=== PATIENT | male | born 1945 | race Caucasian/White ===

== ENCOUNTER 2018-12-29 11:45 | Emergency (ER) | payer OTHER, MEDICARE ==
[~2018-12-29] VITALS: Ht 177.8 cm; Wt 58.1 kg
[~2018-12-29 11:45] MED LIST: AMOCLA875 PO; ASPI81EC PO; ATOR40TA PO; BISA10S PR; CLOP75 PO; CREON DR 24,001 EACH PO; DOXY100 PO; LISI5 PO; MESA250ER PO; METO25ER PO; MULVITMIND PO; NAPR500 PO; OXYC5 PO; Omeprazole20 M1 PO; SENN187 PO
== END 2018-12-29 13:49 | disposition home or self-care (01) ==
LOC: ER 11:45
DX: S80.261A Insect bite (nonvenomous), right knee, initial encounter (principal); W57.XXXA Bitten or stung by nonvenomous insect and other nonvenomous arthropods, initial encounter; Z79.899 Other long term (current) drug therapy; Z87.891 Personal history of nicotine dependence
CPT/HCPCS: 99283

== ENCOUNTER 2019-08-08 11:10 | Emergency (ER) | payer OTHER ==
[~2019-08-08] VITALS: Ht 177.8 cm; Wt 59.0 kg
[2019-08-08 11:45] LABS: Source, Urine Clean Catch
[2019-08-08 11:57] LABS: BASOPHILS ABSOLUTE AUTO 0.01 K/mm3 (0.00-0.23); BASOPHILS PERCENT AUTO 0 % (0-2); EOSINOPHILS ABSOLUTE AUTO 0.04 K/mm3 (0.00-0.68); EOSINOPHILS PERCENT AUTO 1 % (0-6); Hematocrit 38.9 % (37.0-53.0); Hemoglobin 13.2 g/dL (13.5-17.5); IMMATURE GRAN ABSOLUTE AUTO 0.01 K/mm3 (0.00-0.10); IMMATURE GRAN PERCENT AUTO 0 % (0-1); LYMPHOCYTES PERCENT AUTO 16 % (21-46); MONOCYTES ABSOLUTE AUTO 0.36 K/mm3 (0.16-1.47); MONOCYTES PERCENT AUTO 7 % (4-13); Mean Corpuscular HGB 31.1 pg (26.0-34.0); Mean Corpuscular HGB Conc 33.9 g/dL (31.5-36.5); Mean Corpuscular Volume 92 fL (80-100); Mean Platelet Volume 10.6 fL (9.1-12.4); NEUTROPHILS ABSOLUTE AUTO 3.67 K/mm3 (1.96-9.15); NEUTROPHILS PERCENT AUTO 75 % (41-73); Platelet Count 126 K/mm3 (150-400); RDW Coefficient Variation 14.8 % (11.7-14.2); RDW Standard Deviation 49.6 fL (35.1-46.3); Red Blood Cell Count 4.24 M/mm3 (4.30-5.90); White Blood Cell Count 4.89 K/mm3 (4.00-11.30)
[2019-08-08 11:57] LABS: Bilirubin, Urine Neg (Neg); Blood, Urine 5+ (Neg); Color, Urine Yellow (P-Yellow); Glucose Qualitative, Urine 4+ (Neg); Ketones, Urine Neg (Neg); Leukocyte Esterase, Urine Neg (Neg); Nitrite, Urine Neg (Neg); Protein, Urine 2+ (Neg); Specific Gravity, Urine 1.015 (1.003-1.022); Urobilinogen, Urine NORM (Normal)
[2019-08-08 12:09] LABS: Alanine Aminotransfer (ALT/SGP 35 U/L (12-78); Albumin, Blood 3.7 g/dL (3.4-5.0); Albumin/Globulin Ratio 1.1 (0.8-1.8); Alk Phos 74 U/L (50-136); Anion Gap 6 mmol/L (6-16); Aspartate Aminotrans (AST/SGOT 20 U/L (12-37); Bilirubin, Total 0.9 mg/dL (0.1-1.0); Blood Urea Nitrogen 13 mg/dL (8-24); Bun/Creatinine Ratio 19.5 (12.0-20.0); CO2, Blood 25 mmol/L (21-32); Calcium, Blood 8.8 mg/dL (8.5-10.1); Chloride, Blood 104 mmol/L (98-108); Creatinine, Blood 0.67 mg/dL (0.60-1.20); Globulin, Blood 3.3 g/dL (2.2-4.0); Glomerular Filtration Rate >60 (60-); Glucose, Blood 309 mg/dL (70-99); Potassium, Blood 3.8 mmol/L (3.5-5.5); Sodium, Blood 135 mmol/L (136-145)
[2019-08-08 12:43] LABS: Appearance, Urine Hazy (Clear)
[2019-08-08 12:44] LABS: Bacteria Rare /hpf; Calcium Oxalate Crystals Many /hpf; Red Blood Cells, Urine TNTC /hpf (0-2); Squamous Epithelial Cells Rare /hpf (Few)
[2019-08-08] MEDS ORDERED: Flomax0.4 MG PO (13:10)
[2019-08-08] MEDS ORDERED: HYDR1TAB94 PO (13:10)
== END 2019-08-08 13:31 | disposition home or self-care (01) ==
LOC: ER 11:10
PROVIDERS: Emergency Medicine
DX: N13.2 Hydronephrosis with renal and ureteral calculous obstruction (principal); K57.30 Diverticulosis of large intestine without perforation or abscess without bleeding; I25.10 Atherosclerotic heart disease of native coronary artery without angina pectoris; I25.2 Old myocardial infarction; Z79.899 Other long term (current) drug therapy; Z87.891 Personal history of nicotine dependence
CPT/HCPCS: 74176; 80053; 81001; 85025; 99284-25

== ENCOUNTER 2020-04-22 22:42 | Inpatient (IN) | payer OTHER ==
[~2020-04-22] VITALS: Ht 177.8 cm; Wt 57.8 kg
[~2020-04-22 22:42] MED LIST changes: +Flomax0.4 MG PO; +HYDR1TAB94 PO
[2020-04-22 23:33] LABS: BASOPHILS ABSOLUTE AUTO 0.02 K/mm3 (0.00-0.23); BASOPHILS PERCENT AUTO 0 % (0-2); EOSINOPHILS ABSOLUTE AUTO 0.08 K/mm3 (0.00-0.68); EOSINOPHILS PERCENT AUTO 2 % (0-6); Hematocrit 34.4 % (37.0-53.0); Hemoglobin 11.7 g/dL (13.5-17.5); IMMATURE GRAN ABSOLUTE AUTO 0.02 K/mm3 (0.00-0.10); IMMATURE GRAN PERCENT AUTO 0 % (0-1); LYMPHOCYTES PERCENT AUTO 23 % (21-46); MONOCYTES ABSOLUTE AUTO 0.45 K/mm3 (0.16-1.47); MONOCYTES PERCENT AUTO 9 % (4-13); Mean Corpuscular HGB 30.8 pg (26.0-34.0); Mean Corpuscular Volume 91 fL (80-100); Mean Platelet Volume 9.8 fL (9.1-12.4); NEUTROPHILS ABSOLUTE AUTO 3.45 K/mm3 (1.96-9.15); NEUTROPHILS PERCENT AUTO 66 % (41-73); Platelet Count 147 K/mm3 (150-400); RDW Coefficient Variation 14.1 % (11.7-14.2); RDW Standard Deviation 46.6 fL (35.1-46.3); White Blood Cell Count 5.22 K/mm3 (4.00-11.30)
[2020-04-22 23:53] LABS: Anion Gap 5 mmol/L (6-16); Blood Urea Nitrogen 16 mg/dL (8-24); Bun/Creatinine Ratio 20.8 (12.0-20.0); CO2, Blood 27 mmol/L (21-32); Calcium, Blood 9.1 mg/dL (8.5-10.1); Chloride, Blood 108 mmol/L (98-108); Creatinine, Blood 0.77 mg/dL (0.60-1.20); Glomerular Filtration Rate >60 (60-); Glucose, Blood 200 mg/dL (70-99); Potassium, Blood 3.8 mmol/L (3.5-5.5); Sodium, Blood 140 mmol/L (136-145); Troponin I <0.015 ng/mL (0.000-0.040)
[2020-04-23] MEDS ORDERED: ATOR40TA PO (01:27)
[2020-04-23] MEDS ORDERED: THERA-D2000 UNIT PO (01:30)
[2020-04-23] MEDS ORDERED: METF500 PO ×3 (01:31→07:14)
[2020-04-23 02:59] LABS: Troponin I 0.027 ng/mL (0.000-0.040)
[2020-04-23] MEDS ORDERED: PANCREAZE DR 11 EAC3 PO (03:58)
[2020-04-23] MEDS ORDERED: ZENPEP DR 10,01 EACH PO (07:35)
--- NOTE | 2020-04-23 09:28 | NUR ---
Pt called to report chest heaviness, like a weight over the center of his chest. NO diaphoresis, no dyspnea, no nausea. Vital signs stable. quality assurance monitor final tech reports no EKG changes at this time. Given 1 ntg tab under his tongue.
--- NOTE | 2020-04-23 09:29 | NUR ---
pt reports that the ntg tab has helped. spo2 100% on room air. Blood pressure retaken. Pt states that the pressure in his chest is going away a little bit.
--- NOTE | 2020-04-23 09:59 | NUR ---
MORNING UPDATE, ASSUMED CARE FROM NOC RN PT HAD JUST ARRIVED TO PCU AT SHIFT REPORT FROM THE ER. PT CAME TO THE HOSPITAL FOR CHEST PAIN, PT HAD AN RI APPROXIMATELY 1 YEAR AGO AND HAS BEEN PLACED ON OBSERVATION DUE TO THE CHEST PAIN. PT HAD NO CHEST PAIN OR SOB UPON ARRIVING TO THE UNIT. PT DID HAVE A BOUT OF CHEST PAIN THIS MORNING AT APPROXIMATELY 0930 BUT IT WAS RELIEVED WITH ONE SL NITRO TAB. NO EKG CHANGES WERE REPORTED PER PCU TURBINE ROOM ATTENDANTKim COOPER. VS STABLE, PT ON RA. SOME SLIGHT REDNESS ON THE SPINE, IT IS A VERY PROMINENT KYLE AREA FOR THIS PT. PT ALSO HAS A BANDAID ON THE BRIDGE OF HIS NOSE WHERE A CYST WAS REMOVED THIS PAST SATURDAY AN OUTPATIENT, STICHES ARE IN PLACE VERY SCANT AMOUNT OF SERISANGUIANOUS DRAINAGE. PT IS RESTING AT THIS TIME.
[2020-04-23 10:04] LABS: BASOPHILS ABSOLUTE AUTO 0.02 K/mm3 (0.00-0.23); BASOPHILS PERCENT AUTO 0 % (0-2); EOSINOPHILS ABSOLUTE AUTO 0.04 K/mm3 (0.00-0.68); EOSINOPHILS PERCENT AUTO 1 % (0-6); Hematocrit 35.4 % (37.0-53.0); Hemoglobin 12.3 g/dL (13.5-17.5); IMMATURE GRAN ABSOLUTE AUTO 0.01 K/mm3 (0.00-0.10); IMMATURE GRAN PERCENT AUTO 0 % (0-1); LYMPHOCYTES ABSOLUTE AUTO 1.15 K/mm3 (0.84-5.20); LYMPHOCYTES PERCENT AUTO 21 % (21-46); MONOCYTES ABSOLUTE AUTO 0.36 K/mm3 (0.16-1.47); MONOCYTES PERCENT AUTO 7 % (4-13); Mean Corpuscular HGB 30.8 pg (26.0-34.0); Mean Corpuscular HGB Conc 34.7 g/dL (31.5-36.5); Mean Corpuscular Volume 89 fL (80-100); Mean Platelet Volume 10.3 fL (9.1-12.4); NEUTROPHILS PERCENT AUTO 72 % (41-73); Platelet Count 153 K/mm3 (150-400); RDW Coefficient Variation 13.9 % (11.7-14.2); RDW Standard Deviation 45.7 fL (35.1-46.3); Red Blood Cell Count 3.99 M/mm3 (4.30-5.90); White Blood Cell Count 5.58 K/mm3 (4.00-11.30)
[2020-04-23 10:18] LABS: Alanine Aminotransfer (ALT/SGP 60 U/L (12-78); Albumin, Blood 3.2 g/dL (3.4-5.0); Alk Phos 69 U/L (50-136); Anion Gap 7 mmol/L (6-16); Aspartate Aminotrans (AST/SGOT 44 U/L (12-37); Bilirubin, Total 0.7 mg/dL (0.1-1.0); Blood Urea Nitrogen 14 mg/dL (8-24); Bun/Creatinine Ratio 23.3 (12.0-20.0); CO2, Blood 24 mmol/L (21-32); Calcium, Blood 8.9 mg/dL (8.5-10.1); Chloride, Blood 106 mmol/L (98-108); Globulin, Blood 3.2 g/dL (2.2-4.0); Glomerular Filtration Rate >60 (60-); Glucose, Blood 275 mg/dL (70-99); Potassium, Blood 3.8 mmol/L (3.5-5.5); Sodium, Blood 137 mmol/L (136-145); Total Protein, Blood 6.4 g/dL (6.4-8.2)
[2020-04-23 10:31] LABS: Troponin I 0.538 ng/mL (0.000-0.040)
[2020-04-23 12:15] LABS: International Normalized Ratio 1.21; Prothrombin Time Results 12.8 Sec (9.7-11.5)
[2020-04-23 13:37] LABS: Influenza A, PCR NEGATIVE (NEGATIVE); Influenza B, PCR NEGATIVE (NEGATIVE); Resp Syncytial Virus, PCR NEGATIVE (NEGATIVE); SARS-Cov-2 (COVID-19) PCR, MMC NEGATIVE (NEGATIVE)
--- NOTE | 2020-04-23 15:39 | NUR ---
Echocardiogram complete.
[2020-04-23 18:25] LABS: Troponin I 2.18 ng/mL (0.000-0.040)
--- NOTE | 2020-04-23 18:45 | NUR ---
SHIFT SUMMARY PT HAS BEEN ALERT AND ORIENTED TODAY, PT HAS BEEN ABLE TO USE THE URINAL INDEPENDENTLY TODAY. PT HAD A CARDIOLOGY CONSULT AND WILL BE GIVEN AN ANGIOGRAM TOMORROW. ECHO WAS COMPLETED TODAY AND PT HAS BEEN PLACED ON A HEPARIN GTT. PT IS RESTING IN BED AT THIS TIME
[2020-04-24 04:15] LABS: Hemoglobin 12.2 g/dL (13.5-17.5); Mean Corpuscular HGB 30.8 pg (26.0-34.0); Mean Corpuscular HGB Conc 34.9 g/dL (31.5-36.5); Mean Corpuscular Volume 88 fL (80-100); Mean Platelet Volume 9.9 fL (9.1-12.4); Platelet Count 118 K/mm3 (150-400); RDW Standard Deviation 45.1 fL (35.1-46.3); Red Blood Cell Count 3.96 M/mm3 (4.30-5.90); White Blood Cell Count 3.75 K/mm3 (4.00-11.30)
[2020-04-24 04:34] LABS: Alanine Aminotransfer (ALT/SGP 55 U/L (12-78); Albumin, Blood 3.2 g/dL (3.4-5.0); Anion Gap 4 mmol/L (6-16); Aspartate Aminotrans (AST/SGOT 37 U/L (12-37); Blood Urea Nitrogen 19 mg/dL (8-24); Bun/Creatinine Ratio 26.6 (12.0-20.0); CHOL/HDL RATIO 1.7; CO2, Blood 25 mmol/L (21-32); Calcium, Blood 8.9 mg/dL (8.5-10.1); Chloride, Blood 110 mmol/L (98-108); Cholesterol 74 mg/dL (50-200); Creatinine, Blood 0.71 mg/dL (0.60-1.20); Glomerular Filtration Rate >60 (60-); Glucose, Blood 147 mg/dL (70-99); HDL Cholesterol 44 mg/dL (>39); LDL/HDL RATIO 0.4; Low Density Lipoprotein Chol 17 mg/dL (0-110); Phosphorus, Blood 3.2 mg/dL (2.5-4.9); Potassium, Blood 3.9 mmol/L (3.5-5.5); Sodium, Blood 139 mmol/L (136-145); Triglycerides 66 mg/dL (30-160); Very Low Density Lipoprot Chol 13 mg/dL (6-32)
--- NOTE | 2020-04-24 04:36 | NUR ---
SHIFT SUMMARY PT WAS PLEASENT AND COOPERATIVE WITH CARE. ALERT AND ORIENTED. PT DENIED ANY CHEST PAIN T/O THE NIGHT. PT STATED HAVING MINIMAL BACK PAIN FOR A BRIEF PERIOD HE STATED WAS SIMILIAR TO THE BACK PAIN WITH HIS PREVIOUS PR. PT OTHERWISE HAD NOTHING TO REPORT. VITALS WERE STABLE. BP HYPOTENSIVE 103-113 SYSTOLIC, MAP'S ABOVE 65. HR 40-60'S. PT HAS BEEN NPO SINCE MIDNIGHT AND IS EAGER FOR HIS PROCEDURE. HE HAD A QUIET UNEVENTFUL NIGHT.
--- NOTE | 2020-04-24 11:01 | NUR ---
MORNING UPDATE PT DENIED CHEST PAIN THIS MORNING. PT WAS INDEPENDENTLY WALKING IN THE ROOM THIS MORNING. HEP GTT WAS STILL RUNNING AT SHIFT CHANGE AND WAS VERIFIED WITH NOC RN. PT LEFT FOR SCHEDULED ANGIO AT APPROXIMATELY 1000.
--- NOTE | 2020-04-24 11:54 | NUR ---
POST ANGIO PT ARRIVED BACK TO PCU FROM [facility] AT APPROXIMATELY 1115. PT HAS TR BAND IN PLACE WITH 9ML OF AIR. PT HAS ARM BOARD OVER TR BAND AND PULSE OXIMETER IN PLACE TO WATCH PROFUSION OF THE HAND. PT DENIES CHEST PAIN AND DISCOMFORT. PT'S BP IS LOW BUT MAP IS STABLE, PT IS ALSO BRADYCARDIC BUT IS ASYMPTOMATIC. PT DENIES DIZZINESS, LIGHTHEADEDNESS, SOB. NO DRAINAGE AT THE RADIAL ACCESS SITE PRESENT, STRONG PULSE AND O2 SATURATION IS 97% WHEN USING THE RIGHT HAND FOR MEASUREMENT. PT RESTING AT THIS TIME
--- NOTE | 2020-04-24 13:11 | NUR ---
TR BAND DURING THE CHECK ON THE RADIAL ACCESS SITE IT WAS APPARENT THAT A HEMATOMA HAD FORMED ON THE FOREARM ABOVE THE TR BAND. MASS COMMUNICATIONS PROFESSORMEG VILLEAD HELD PRESSURE FOR APPROXIMATELY 7 MINUTES, DR. MONTOYA WAS NOTIFIED. THE PT'S ARM WAS ELEVATED. VS STABLE AT THIS TIME, NO OTHER BLEEDING OR DRAINAGE NOTED.
--- NOTE | 2020-04-24 18:09 | NUR ---
SHIFT SUMMARY PT HAD ANGIO COMPLETED THIS MORNING AND HAD A BALLOON PLACED TO OPEN A PREVIOUSLY PLACED STENT.HEMATOMA APPEARED PRIOR TO ANY AIR BEING REMOVED FROM TR BAND. DR. MONTOYA WAS NOTIFIED, SPRING FORGERRN. Abelino VILLEDA HELD PRESSURE AND IT RESOLVED. PT RETURNED WITH TR BAND IN PLACE AND ARM BOARD IN PLACE. MEG DICKSON BEGAN DEFLATING THE TR BAND AT 1435, LAST ACT WAS 285 AT 1100. RN RANDOLPH REMOVED 2ML OF AIR AT 1435, NO SIGNS OF BLEEDING, DRAINAGE, NO PAIN, PT REPORTED FULL SENSATION, STRONG PULSE. AT 1500 RN RANDOLPH REMOVED 3ML OF AIR FROM THE TR BAND. AGAIN NO DRAINAGE, NO PAIN AND PT REPORTED FULL SENSATION, CAP REFILL WAS LESS THAN 3 SECONDS. AT 1531 MEG NELSON NOTICED SOME ADDITIONALLY DRAINAGE FROM THE RADIAL SITE AND ADDED 2ML OF AIR BACK TO THE BAND. AT 1605 IT WAS NOTED NO ADDITIONAL DRAINAGE WAS COMING FROM UNDER THE BAND BUT THE PT NOTED THE BAND BEING TIGHT AND UNCOMFORTABLE. FULL SENSATION, NO PAIN UP THE ARM, STRONG PULSE AND NO DRAINAGE SO ANOTHER 2ML WAS TAKEN OUT OF THE BAND. AT 1644 2ML OF AIR WAS REMOVED AND THE BAND WAS DEFLATED AT 1700; A TOTAL OF 9ML OF AIR REMOVED. AT 1800 THE TR BAND WAS REMOVED AND A TEGADERM AND NEW ARM BOARD PUT INTO PLACE. VS HAVE BEEN STABLE, PT ON RA AND INDEPENDENTLY USING THE URINAL IN BED
--- NOTE | 2020-04-24 18:58 | NUR ---
RIGHT RADIAL SITE PT HAD TR BAND REMOVED AT 1800 WITH NO BLEEDING AT THE TIME. WHEN CHECKING THE SITE AT 1845 IT HAD A SMALL AMOUNT OF BLEEDING. MEG FIGUEREDO AND MEG VILLEDA HELD PRESSURE FOR APPROXIMATELY 15 MINUTES, IT HAS STOPPED BLEEDING. A NEW TEGADERM WAS PLACED AND THE ARM BOARD WAS SECURED AROUND THE SITE WELL
[2020-04-25 04:12] LABS: BASOPHILS ABSOLUTE AUTO 0.02 K/mm3 (0.00-0.23); BASOPHILS PERCENT AUTO 1 % (0-2); EOSINOPHILS ABSOLUTE AUTO 0.05 K/mm3 (0.00-0.68); EOSINOPHILS PERCENT AUTO 2 % (0-6); Hematocrit 35.3 % (37.0-53.0); Hemoglobin 12.2 g/dL (13.5-17.5); IMMATURE GRAN ABSOLUTE AUTO 0.01 K/mm3 (0.00-0.10); IMMATURE GRAN PERCENT AUTO 0 % (0-1); LYMPHOCYTES ABSOLUTE AUTO 0.88 K/mm3 (0.84-5.20); LYMPHOCYTES PERCENT AUTO 27 % (21-46); MONOCYTES ABSOLUTE AUTO 0.46 K/mm3 (0.16-1.47); MONOCYTES PERCENT AUTO 14 % (4-13); Mean Corpuscular HGB 30.6 pg (26.0-34.0); Mean Corpuscular HGB Conc 34.6 g/dL (31.5-36.5); Mean Corpuscular Volume 89 fL (80-100); Mean Platelet Volume 10.3 fL (9.1-12.4); NEUTROPHILS ABSOLUTE AUTO 1.87 K/mm3 (1.96-9.15); NEUTROPHILS PERCENT AUTO 57 % (41-73); Platelet Count 114 K/mm3 (150-400); RDW Coefficient Variation 13.9 % (11.7-14.2); RDW Standard Deviation 44.8 fL (35.1-46.3); Red Blood Cell Count 3.99 M/mm3 (4.30-5.90); White Blood Cell Count 3.29 K/mm3 (4.00-11.30)
[2020-04-25 04:31] LABS: Anion Gap 4 mmol/L (6-16); Blood Urea Nitrogen 18 mg/dL (8-24); Bun/Creatinine Ratio 25.2 (12.0-20.0); CO2, Blood 28 mmol/L (21-32); Calcium, Blood 8.9 mg/dL (8.5-10.1); Chloride, Blood 108 mmol/L (98-108); Creatinine, Blood 0.71 mg/dL (0.60-1.20); Glomerular Filtration Rate >60 (60-); Glucose, Blood 148 mg/dL (70-99); Potassium, Blood 3.9 mmol/L (3.5-5.5); Sodium, Blood 140 mmol/L (136-145)
--- NOTE | 2020-04-25 05:04 | NUR ---
SHIFT SUMMARY PATIENT IS ALERT, ORIENTED, COOPERATIVE WITH CARE. INDEPENDENT IN ROOM. PATIENT SLEPT MOST THE NIGHT. RIGHT RADIAL SITE WITH HEMATOMA, SCANT AMOUNT OF BLOOD, UNCHANGED FROM START OF SHIFT, PATIENT HAS GOOD FEELING, COLOR, AND WARMTH IN RIGHT HAND. SPLINT IN PLACE. O2 SATS >95% ON RA. VSS, NO ACUTE CHANGES. CALL LIGHT IN REACH.
[2020-04-25] MEDS ORDERED: CLOP75 PO (11:14)
[2020-04-25] MEDS ORDERED: ASPI81CH PO (11:14)
[2020-04-25] MEDS ORDERED: NITR.4SL SL (11:16)
--- NOTE | 2020-04-25 12:22 | NUR ---
UPDATE PT ALERT AND ORIENTED. VS STABLE. O2 SATS HAVE REMAINED ABOVE 90% ON RA. PT DENIES ANY PAIN. HR NSR. DISCHARGE ORDERS PLACED. INSTRUCTIONS PROVIDED TO PT. PT EDUCATED ON MEDICATION CHANGES. ALL QUESTIONS ANSWERED. PT TAKEN OUT BY WC.
== END 2020-04-25 12:21 | disposition home or self-care (01) | DRG 250 ==
LOC: ER 22:42 → ERHOLD 22:43 → PCU 22:43
PROVIDERS: Internal Medicine; Internal Medicine Cardiovascular Disease; Student in an Organized Health Care Education/Training Program; ADMIT Internal Medicine
PROC: 02703ZZ Dilation of Coronary Artery, One Artery, Percutaneous Approach (ICD-10-PCS; principal; 2020-04-24)
PROC: 4A033BC Measurement of Arterial Pressure, Coronary, Percutaneous Approach (ICD-10-PCS; 2020-04-24)
PROC: B2111ZZ Fluoroscopy of Multiple Coronary Arteries using Low Osmolar Contrast (ICD-10-PCS; 2020-04-24)
DX: T82.855A Stenosis of coronary artery stent, initial encounter (principal); I21.4 Non-ST elevation (NSTEMI) myocardial infarction; K51.90 Ulcerative colitis, unspecified, without complications; K86.1 Other chronic pancreatitis; I25.10 Atherosclerotic heart disease of native coronary artery without angina pectoris; Z79.899 Other long term (current) drug therapy; I10 Essential (primary) hypertension; I25.2 Old myocardial infarction; E11.9 Type 2 diabetes mellitus without complications; Z90.49 Acquired absence of other specified parts of digestive tract; Z95.5 Presence of coronary angioplasty implant and graft; Z98.890 Other specified postprocedural states; F17.200 Nicotine dependence, unspecified, uncomplicated; E78.5 Hyperlipidemia, unspecified; D69.6 Thrombocytopenia, unspecified
CPT/HCPCS: 0241U; 36415; 71045; 76937; 80048; 80053; 80061; 80069; 82550; 83036; 83690; 84450; 84460; 84484; 85025; 85027; 85347; 85610; 85730; 92920; 93005; 93010; 93306; 93454; 93571; 96372; 96374; 99152; 99153; 99285-25; A9270; C1725; C1769; C1887; C1894; G0378; J1644; J1650; J2250; J3010; J7030; Q9967

== ENCOUNTER 2020-04-26 15:14 | Inpatient (IN) | payer OTHER ==
[~2020-04-26] VITALS: Ht 177.8 cm; Wt 62.5 kg
[~2020-04-26 15:14] MED LIST changes: +ASPI81CH PO; +METF500 PO; +NITR.4SL SL; +PANCREAZE DR 11 EAC3 PO; +THERA-D2000 UNIT PO; +ZENPEP DR 10,01 EACH PO
[2020-04-26 16:10] LABS: BASOPHILS ABSOLUTE AUTO 0.02 K/mm3 (0.00-0.23); BASOPHILS PERCENT AUTO 0 % (0-2); EOSINOPHILS ABSOLUTE AUTO 0.03 K/mm3 (0.00-0.68); EOSINOPHILS PERCENT AUTO 0 % (0-6); Hematocrit 29.8 % (37.0-53.0); Hemoglobin 10.1 g/dL (13.5-17.5); IMMATURE GRAN ABSOLUTE AUTO 0.04 K/mm3 (0.00-0.10); IMMATURE GRAN PERCENT AUTO 0 % (0-1); LYMPHOCYTES ABSOLUTE AUTO 1.61 K/mm3 (0.84-5.20); LYMPHOCYTES PERCENT AUTO 16 % (21-46); MONOCYTES ABSOLUTE AUTO 0.71 K/mm3 (0.16-1.47); MONOCYTES PERCENT AUTO 7 % (4-13); Mean Corpuscular HGB 31.1 pg (26.0-34.0); Mean Corpuscular HGB Conc 33.9 g/dL (31.5-36.5); Mean Corpuscular Volume 92 fL (80-100); Mean Platelet Volume 10.1 fL (9.1-12.4); NEUTROPHILS ABSOLUTE AUTO 7.96 K/mm3 (1.96-9.15); NEUTROPHILS PERCENT AUTO 77 % (41-73); Platelet Count 210 K/mm3 (150-400); RDW Coefficient Variation 14.3 % (11.7-14.2); Red Blood Cell Count 3.25 M/mm3 (4.30-5.90); White Blood Cell Count 10.37 K/mm3 (4.00-11.30)
[2020-04-26 16:41] LABS: Alanine Aminotransfer (ALT/SGP 76 U/L (12-78); Albumin, Blood 3.1 g/dL (3.4-5.0); Albumin/Globulin Ratio 1.1 (0.8-1.8); Alk Phos 66 U/L (50-136); Anion Gap 9 mmol/L (6-16); Aspartate Aminotrans (AST/SGOT 48 U/L (12-37); Bilirubin, Total 1.4 mg/dL (0.1-1.0); Blood Urea Nitrogen 41 mg/dL (8-24); Bun/Creatinine Ratio 60.1 (12.0-20.0); CO2, Blood 25 mmol/L (21-32); Calcium, Blood 8.8 mg/dL (8.5-10.1); Chloride, Blood 104 mmol/L (98-108); Creatinine, Blood 0.68 mg/dL (0.60-1.20); Globulin, Blood 2.9 g/dL (2.2-4.0); Glomerular Filtration Rate >60 (60-); Glucose, Blood 300 mg/dL (70-99); Magnesium, Blood 2.1 mg/dL (1.6-2.4); Potassium, Blood 4.4 mmol/L (3.5-5.5); Sodium, Blood 138 mmol/L (136-145)
[2020-04-26 18:25] LABS: Source, Urine Clean Catch
[2020-04-26 18:34] LABS: Appearance, Urine Clear (Clear); Bilirubin, Urine Neg (Neg); Blood, Urine Neg (Neg); Color, Urine Yellow (P-Yellow); Glucose Qualitative, Urine 4+ (Neg); Ketones, Urine 3+ (Neg); Leukocyte Esterase, Urine Neg (Neg); Nitrite, Urine Neg (Neg); Protein, Urine Neg (Neg); Urobilinogen, Urine NORM (Normal)
--- NOTE | 2020-04-26 23:22 | NUR ---
PT ARRIVES TO ICU 16 VIA GURNEY FROM ER FOR DX LACTIC ACIDOSIS, PRESSURES NOTED SOFT HOWEVER MAP MAINTAINING, PT STATES NEED TO VOID ON ARRIVAL, CLEAR YELLOW URINE AT THIS TIME, PT DENIES DIZZINESS/VERTIGO, DENIES CP/PRESSURE, DENIES DYSPNEA/SOB, SKIN IS WARM AND DRY, NO EDEMA IS NOTED, BRISK CAP REFILL, PULSES ARE FULL X 4 EXTREMITIES. WILL DISCUSS WITH MD FOR PLAN OF CARE. IV ATTEMPT WITH PRESSURE DRESSINGS X 2 TO RIGHT FOREARM, PREVIOUS RIGHT RADIAL ACCESS SITE IS WNL AT THIS TIME, GREEN/YELLOW BRUISING IS PRESENT TO WRIST AREA, SITE IS SOFT, NO CURRENT BLEEDING IS NOTED. DRESSING TO RIGHT RADIAL SITE IS LOOSE AND OLD DRIED BLOOD IS PRESENT NEAR PUNCTURE SITE, WILL REPLACE WITH CLEAN OPSITE.
[2020-04-26 23:29] LABS: Troponin I 0.56 ng/mL (0.000-0.040)
--- NOTE | 2020-04-27 01:00 | NUR ---
PLAN OF CARE DR SCHILLING ON UNIT, DISCUSSED PT'S CURRENT VITAL SIGNS, URINE OUTPUT, PT IS DENYING DIZZINESS/VERTIGO AT REST, NO DIAPHORESIS NOTED, PT DENIES CP/PRESSURE, DENIES N/V, AND IS ALERT AND ORIENTED X 4, PULSES ARE FULL X 4 EXTREMITIES WITH BRISK CAP REFILL, SKIN IS WARM AND DRY. PLAN FOR CONTINUED GENTLE HYDRATION WITH IVF AT THIS TIME AND CONTINUE TO MONITOR PRESSURES FOR MAP 60-65 LONG PT REMAINS ASYMPTOMATIC. POSSIBLE LOW DOSE LEVOPHED IF PT UNABLE TO MAINTAIN MAP OR BECOMES SYMPTOMATIC.
--- NOTE | 2020-04-27 05:10 | NUR ---
BLOOD PRESSURE SPOKE WITH DR SCHILLING REGARDING PT BLOOD PRESSURE TRENDS, CONTINUED LACK OF SYMPTOMS AT REST, AND URINE OUTPUT. IVF INCREASED TO 100 ML/HR FOR 1 MORE LITER AT THIS TIME. WILL MONITOR.
--- NOTE | 2020-04-27 05:30 | NUR ---
ACTIVITY PT CALLS THIS RN AND STATES NEEDS FOR BM, WOULD PREFER TO NOT USE BEDPAN, ASSISTED TO SITTING POSITION AT SIDE OF BED, PT DENIES DIZZINESS/VERTIGO, DENIES CP/PRESSURE, DOES FEEL HEART RATE INCREASING, SITTING BP OBTAINED, PRESSURE IS NOTED TO MAINTAIN HOWEVER HEART RATE INCREASES TO 100S, PT IS ASSISTED TO STANDING POSITION, UNABLE TO OBTAIN PRESSURE FOR TRANSFER SAFETY, PT CONTINUES TO DENY DIZZINESS/VERTIGO AND TRANSFERS SELF TO COMMODE WITH MINIMAL ASSISTANCE. BP OBTAINED WHEN SITTING ON COMMODE, UNCHANGED FROM SITTING AT BEDSIDE. WITH STRAINING FOR BM, PTS HEART RATE IS NOTED TO INCREASE TO 120S AND PT STATES THAT HE FEELS SLIGHTLY DIZZY HOWEVER DOES REPORT THAT THIS RESOLVES WITHIN 10 SECONDS, TRANSFERS BACK TO BED WELL.
[2020-04-27 07:14] LABS: BASOPHILS ABSOLUTE AUTO 0.01 K/mm3 (0.00-0.23); BASOPHILS PERCENT AUTO 0 % (0-2); EOSINOPHILS ABSOLUTE AUTO 0.03 K/mm3 (0.00-0.68); EOSINOPHILS PERCENT AUTO 1 % (0-6); Hematocrit 19.4 % (37.0-53.0); Hemoglobin 6.6 g/dL (13.5-17.5); IMMATURE GRAN ABSOLUTE AUTO 0.02 K/mm3 (0.00-0.10); IMMATURE GRAN PERCENT AUTO 1 % (0-1); LYMPHOCYTES ABSOLUTE AUTO 0.87 K/mm3 (0.84-5.20); LYMPHOCYTES PERCENT AUTO 21 % (21-46); MONOCYTES ABSOLUTE AUTO 0.39 K/mm3 (0.16-1.47); MONOCYTES PERCENT AUTO 10 % (4-13); Mean Corpuscular HGB 31.3 pg (26.0-34.0); Mean Corpuscular Volume 92 fL (80-100); Mean Platelet Volume 10.5 fL (9.1-12.4); NEUTROPHILS PERCENT AUTO 68 % (41-73); Platelet Count 117 K/mm3 (150-400); RDW Coefficient Variation 14.4 % (11.7-14.2); RDW Standard Deviation 48.2 fL (35.1-46.3); Red Blood Cell Count 2.11 M/mm3 (4.30-5.90); White Blood Cell Count 4.12 K/mm3 (4.00-11.30)
--- NOTE | 2020-04-27 07:18 | NUR ---
PT CONT TO REST QUIETLY, ASYMPTOMATIC WITH THE EXCEPTION OF LESS THAN 10 SECONDS OF DIZZINESS WHEN UP TO BSC FOR BM, VERY GOOD URINE OUTPUT THIS SHIFT. PT REMAINS ALERT AND ORIENTED, LAST SPOKE WITH MD REGARDING BP AT 0510 THIS AM AND ORDERS FOR IVF RATE INCREASE TO 100 ML/HR WERE OBTAINED, MANUAL PRESSURE WAS OBTAINED WITH SYSTOLIC IN THE 70S AND MANUAL PRESSURE WAS 90/56. RIGHT RADIAL ACCESS SITE REMAINS STABLE THROUGHOUT SHIFT.
[2020-04-27 07:24] LABS: Alanine Aminotransfer (ALT/SGP 61 U/L (12-78); Albumin, Blood 2.7 g/dL (3.4-5.0); Albumin/Globulin Ratio 1.2 (0.8-1.8); Alk Phos 45 U/L (50-136); Anion Gap 7 mmol/L (6-16); Aspartate Aminotrans (AST/SGOT 37 U/L (12-37); Bilirubin, Total 0.6 mg/dL (0.1-1.0); Blood Urea Nitrogen 49 mg/dL (8-24); Bun/Creatinine Ratio 78.9 (12.0-20.0); CO2, Blood 22 mmol/L (21-32); CPK Creatine Kinase 38 U/L (39-308); Calcium, Blood 8.4 mg/dL (8.5-10.1); Chloride, Blood 114 mmol/L (98-108); Creatinine, Blood 0.62 mg/dL (0.60-1.20); Globulin, Blood 2.3 g/dL (2.2-4.0); Glomerular Filtration Rate >60 (60-); Glucose, Blood 212 mg/dL (70-99); Potassium, Blood 3.9 mmol/L (3.5-5.5); Sodium, Blood 143 mmol/L (136-145); Troponin I 0.473 ng/mL (0.000-0.040)
[2020-04-27 09:10] LABS: Percent Saturation 33.6 % (20.0-50.0)
--- NOTE | 2020-04-27 09:58 | NUR ---
CARE ASSUMED ASSESSMENTS COMPLETED. BP REMAINS HYPOTENSIVE, SBP 80-90'S. PT DENIES CP, SOB, OR DIZZINESS AT REST. DR. SOLIS IN TO ASSESS, NEW ORDERS RECEIVED. PLAN TO TRANSFUSE ONE UNIT TODAY FOR LOW HGB. NS INFUSING AT 100ML/HR.
--- NOTE | 2020-04-27 11:41 | NUR ---
echocardiogram complete
--- NOTE | 2020-04-27 11:44 | NUR ---
UPDATE PT RESTING IN BED, DENIES C/O AT THIS TIME. SBP REMAINS 90'S, PRBC TRANSFUSION INITIATED, PT TOLERATING WELL WITH NO S/SX REACTION. PT DENIES ABD PAIN, NO BM SO FAR THIS SHIFT, DENIES OBVIOUS BLOOD IN STOOLS RECENTLY, REPORTS HX OF SPLENIC BLEED, CLYDE MORGAN AND IRMA AWARE.
--- NOTE | 2020-04-27 16:20 | NUR ---
UPDATE ABD/PELVIS CT COMPLETED, AWAITING RESULTS. DR. MORGAN IN TO REASSESS PATIENT, NEW ORDERS RECEIVED, WILL CHECK HGB THIS EVENING. PT RESTING IN BED WITH NO C/O, CONTINUES TO DENY ABD PAIN. NO STOOL THIS SHIFT, URINE CLEAR YELLOW. BP REMAINS STABLE 85-100 SYSTOLIC, PT DENIES DIZZINESS, FAINTNESS, AND DIAPHORESIS WHILE RESTING IN BED. NO C/O CP TODAY.
[2020-04-27 17:24] LABS: Hematocrit 21.7 % (37.0-53.0); Hemoglobin 7.7 g/dL (13.5-17.5)
--- NOTE | 2020-04-27 18:39 | NUR ---
END OF SHIFT PT CONTINUES TO DENY CP/DIZZINESS/SOB/ABD DISCOMFORT, SBP 80'S-105, MAPS STABLE. PT RECEIVED 1U PRBC'S WITHOUT REACTION, HGB IMPROVED AT REDRAW THIS EVENING. PT TOLERATED DINNER WITHOUT DIFFICULTY, NO NAUSEA OR DISCOMFORT FOLLOWING MEAL. ABD SOFT, NONTENDER, NO DISTENTION NOTED. NO VOMITING OR STOOLS THIS SHIFT, URINE CLEAR YELLOW, NO OBVIOUS SOURCE OF BLEEDING OBSERVED TODAY. HR 80'S, REMAINS SINUS. R FOREARM REMAINS BRUISED, RADIAL ACCESS SITE SOFT, NO ACTIVE BLEEDING. WILL CONTINUE TO MONITOR AND REPORT TO ONCOMING SHIFT.
--- NOTE | 2020-04-27 20:00 | NUR ---
ASSUMED CARE OF PT AT 1915. REPORT RECEIVED. PT PRESENTS IN BED. NO S/S DISTRESS. PT SLEEPING AT THIS TIME. BLOOD PRESSURES BEING DONE ON LEFT ARM, AND PT LAYING ON HIS RIGHT SIDE WITH ARM ELEVATED. BLOOD PRESSURES REFLECTIVE OF POSITION. WILL REVIEW CHART AND PLAN OF CARE FOR THIS PT.
--- NOTE | 2020-04-28 01:00 | NUR ---
BLOOD PRESSURES REMAIN SOMEWHAT LOW. 80'S TO 100'S. ASYMPTOMATIC. NO COMPLAINTS NAUSEA. NO CHEST PAIN OR PRESSURE. WILL CONTINUE TO MONITOR PT.
[2020-04-28 03:53] LABS: BASOPHILS ABSOLUTE AUTO 0.01 K/mm3 (0.00-0.23); BASOPHILS PERCENT AUTO 0 % (0-2); EOSINOPHILS ABSOLUTE AUTO 0.08 K/mm3 (0.00-0.68); EOSINOPHILS PERCENT AUTO 3 % (0-6); Hematocrit 18.5 % (37.0-53.0); Hemoglobin 6.4 g/dL (13.5-17.5); IMMATURE GRAN PERCENT AUTO 0 % (0-1); LYMPHOCYTES ABSOLUTE AUTO 0.67 K/mm3 (0.84-5.20); LYMPHOCYTES PERCENT AUTO 25 % (21-46); MONOCYTES ABSOLUTE AUTO 0.31 K/mm3 (0.16-1.47); MONOCYTES PERCENT AUTO 12 % (4-13); Mean Corpuscular HGB 30.9 pg (26.0-34.0); Mean Corpuscular HGB Conc 34.6 g/dL (31.5-36.5); Mean Corpuscular Volume 89 fL (80-100); Mean Platelet Volume 10.2 fL (9.1-12.4); NEUTROPHILS PERCENT AUTO 60 % (41-73); Platelet Count 92 K/mm3 (150-400); RDW Coefficient Variation 14.4 % (11.7-14.2); RDW Standard Deviation 46.7 fL (35.1-46.3); Red Blood Cell Count 2.07 M/mm3 (4.30-5.90); White Blood Cell Count 2.67 K/mm3 (4.00-11.30)
[2020-04-28 04:12] LABS: Anion Gap 5 mmol/L (6-16); Blood Urea Nitrogen 26 mg/dL (8-24); Bun/Creatinine Ratio 39.2 (12.0-20.0); CO2, Blood 23 mmol/L (21-32); Chloride, Blood 115 mmol/L (98-108); Creatinine, Blood 0.66 mg/dL (0.60-1.20); Glomerular Filtration Rate >60 (60-); Glucose, Blood 151 mg/dL (70-99); Potassium, Blood 3.6 mmol/L (3.5-5.5); Sodium, Blood 143 mmol/L (136-145)
--- NOTE | 2020-04-28 05:42 | NUR ---
PT HAS BEEN ABLE TO REST SOME THROUGH THE NIGHT. BLOOD PRESSURES HAVE BEEN SOMEWHAT LOW THIS NIGHT WITH SBP 80-100'S. PT HAS REMAINED ASYMPTOMATIC WITH THE LOWER BLOOD PRESSURES. HAS BEEN INDEPENDENT IN BED. TURNS HIMSELF IN BED. BLOOD PRESSURES HAVE BEEN SOMEWHAT SUBJECT TO POSITIONING. HAVE MOVED BLOOD PRESSURE CUFF TO SIDE THAT IS NOT ELEVATED. PT REMAINS ALERT AND ORIENTED, PLEASANT AND COOPERATIVE WITH CARE AND ASSESSMENT. CALL MADE TO DR GRAY THIS AM SECONDARY TO DROP IN H/H. ORDER RECEIVED FOR 2 UNITS PRBC'S. FIRST UNIT IN PROCESS AT THIS TIME. TEACHING DONE. NO S/S ACTIVE BLEEDING TO NOTE. WILL CONTINUE TO MONITOR PT, AND WILL REPORT OFF TO ONCOMING RN.
[2020-04-28 08:54] LABS: RETICULOCYTE ABSOLUTE 0.062 M/mm3 (0.0200-0.1100); RETICULOCYTE COUNT PERCENT 2.44 % (0.50-2.50)
[2020-04-28 09:13] LABS: Albumin, Blood 2.7 g/dL (3.4-5.0); Albumin/Globulin Ratio 1.2 (0.8-1.8); Bilirubin, Direct 0.2 mg/dL (0.0-0.3); Bilirubin, Indirect 2.2 mg/dL (0.1-0.7); Bilirubin, Total 2.4 mg/dL (0.1-1.0); Globulin, Blood 2.3 g/dL (2.2-4.0)
--- NOTE | 2020-04-28 09:53 | NUR ---
CARE ASSUMED ASSESSMENTS COMPLETED. PT APPROPRIATE AND COOPERATIVE, DENIES DIZZINESS, SOB, OR CP. REPORTS SOME MILD SHARP RUQ PAIN ONLY ON PALPATION, ABD SOFT, NO DISTENTION. BP REMAINS UNCHANGED, SBP 80-100, MAP >60. HR 70'S SINUS, PPP. PRBC INFUSION COMPLETED WITHOUT DIFFICULTY, WILL ADMINISTER NEXT UNIT ORDERED. PT UP TO BSC WITHOUT DIZZINESS, NAUSEA, OR DIAPHORESIS, HAD A LARGE DARK FORMED STOOL, SPECIMEN SENT TO LAB, DR. MORGAN AWARE OF STOOL, NEW ORDERS PENDING POSITIVE HEMOCCULT STOOL. PT RESTING IN BED WITH NO C/O, WILL CONTINUE TO MONITOR.
[2020-04-28 10:51] LABS: Stool Occult Blood Guaiac 1 Pos (Neg)
--- NOTE | 2020-04-28 13:18 | NUR ---
UPDATE GI CONSULTED SECONDARY TO HEMOCCULT POS STOOL, HEMATOLOGY CONSULT CANCELLED. PROTONIX INFUSING PER ORDERS, PT MADE NPO EXCEPT SIPS OF WATER PENDING GI CONSULT. PT ASSISTED TO CHAIR FOR BEDSIDE BATH AND ORAL CARE, TRANSFERRED SAFELY WITH 1 PERSON ASSIST, REPORTED SLIGHT DIZZINESS BUT NO NEAR SYNCOPE OR CHANGE IN HR NOTED, BP INCREASED WITH ACTIVITY, THEN RETURNED TO BASELINE 90'S/60'S. PT NOW BACK IN BED RESTING, DENIES C/O. ABD TENDERNESS ON PALPATION REMAINS PRESENT IN UPPER QUADS. NO ADDITIONAL STOOLS, NO EMESIS.
[2020-04-28 13:21] LABS: Hematocrit 26.5 % (37.0-53.0); Hemoglobin 9.3 g/dL (13.5-17.5)
--- NOTE | 2020-04-28 18:34 | NUR ---
END OF SHIFT PT HAD AN UNEVENTFUL AFTERNOON, NO MORE STOOLS, NO EMESIS TODAY. BP IMPROVED AFTER 2U PRBC'S, PT ASYMPTOMATIC OF HYPOTENSION TODAY, NO CP OR SOB. MILD INTERMITTENT BILAT UPPER QUAD ABD PAIN REMAINS PRESENT, PT DENIES NEED FOR PAIN INTERVENTION. PT UPDATED ON PLAN OF CARE, GI PLANNING FOR UPPER SCOPE TOMORROW. PT TOLERATED MEALS WELL, WAS PLEASANT AND COOPERATIVE T/O SHIFT. VS REMAIN STABLE. REPORT TO ONCOMING SHIFT.
--- NOTE | 2020-04-28 19:42 | NUR ---
ASSUMED CARE OF PT AT 1915. REPORT RECEIVED. PT PRESENTS IN BED. ALERT AND ORIENTED. PLEASANT AND COOPERATIVE WITH CARE AND ASSESSMENT. PT TEACHING DONE ON PLANNED ENDOSCOPY IN MORNING. PT TO BE ON CLEAR LIQUIDS AFTER MIDNIGHT. NO REDS. PT HAS MILD TENDERNESS TO PALPATION AT EPIGASTRIC REGION. NO COMPLAINTS OF NAUSEA. NO CHEST PAIN OR PRESSURE. WILL REVIEW CHART AND PLAN OF CARE FOR THIS PT.
--- NOTE | 2020-04-28 23:26 | NUR ---
PT RESTING IN BED. MAINTAINS BP WITH MAP > 60. NO COMPLAINTS OF CHEST PAIN OR PRESSURE. NO COMPLAINTS OF NAUSEA. IS INDEPENDENT IN BED. NO ISSUES TO NOTE.
[2020-04-29 04:16] LABS: Hematocrit 22.7 % (37.0-53.0); Mean Corpuscular HGB 30.8 pg (26.0-34.0); Mean Corpuscular HGB Conc 35.2 g/dL (31.5-36.5); Mean Corpuscular Volume 87 fL (80-100); Mean Platelet Volume 10.6 fL (9.1-12.4); Platelet Count 80 K/mm3 (150-400); RDW Coefficient Variation 15.9 % (11.7-14.2); RDW Standard Deviation 50.4 fL (35.1-46.3); White Blood Cell Count 2.37 K/mm3 (4.00-11.30)
--- NOTE | 2020-04-29 04:31 | NUR ---
PT HAS NOT HAD ANY S/S BLEED THIS SHIFT. PENDING AM LAB RESULTS. PT HAS NO COMPLAINTS GI DISTRESS. BLOOD PRESSURES HAVE REMAINED SBP 80-110. ASYMPTOMATIC WITH LOWER BP'S. PT VOIDS Q.S. CONTINUES ON PROTONIX DRIP. WILL CONTINUE TO MONITOR PT, AND WILL REPORT OFF TO ONCOMING RN.
[2020-04-29 04:36] LABS: Anion Gap 5 mmol/L (6-16); Blood Urea Nitrogen 16 mg/dL (8-24); CO2, Blood 23 mmol/L (21-32); Calcium, Blood 8.2 mg/dL (8.5-10.1); Chloride, Blood 115 mmol/L (98-108); Glomerular Filtration Rate >60 (60-); Glucose, Blood 161 mg/dL (70-99); Potassium, Blood 3.4 mmol/L (3.5-5.5); Sodium, Blood 143 mmol/L (136-145)
--- NOTE | 2020-04-29 08:40 | NUR ---
ASSESSMENT- PT AWAKE, ALERT, COOPERATIVE. SKIN W/D, DENIES ANY PAIN, SOB OR DIZZINESS. SBP 90'S. LUNGS CLEAR, RESPIRATIONS UNLABORED. NSR. COVID TEST DONE, SENT. NS AT 100 CC/HR, PROTONIX GTT AT 10 CC/HR. LEFT ARM PIV SWOLLEN-DC, SECOND SITE PLACED. BLOOD SUGAR 185-COVERED PER ORDERS. VOIDING. ABLE TO REPOSITION SELF IN BED. REVIEWED PLAN OF CARE.
[2020-04-29 09:53] LABS: Influenza A, PCR NEGATIVE (NEGATIVE); Influenza B, PCR NEGATIVE (NEGATIVE); Resp Syncytial Virus, PCR NEGATIVE (NEGATIVE); SARS-Cov-2 (COVID-19) PCR, MMC NEGATIVE (NEGATIVE)
--- NOTE | 2020-04-29 11:04 | NUR ---
COVID NEGATIVE. PLANS FOR SCOPE THIS AFTERNOON. ABLE TO TAKE PO CLEAR LIQUIDS NOW PER ORDERS. C/O FEELING "TIED UP" WITH LINES/CORDS. EXPLAINED PLAN OF CARE. ASSISTED UP OUT OF BED WITH IMPROVEMENT.
--- NOTE | 2020-04-29 13:30 | NUR ---
VSS. ASSISTED BACK TO BED WITHOUT PROBLEMS. CLEAR LIQUIDS FOR LUNCH.
--- NOTE | 2020-04-29 15:24 | NUR ---
DR. STANTON HERE-SPOKE WITH PT AND PT'S DAUGHTER. VSS. PLANS FOR SCOPE. HAS BEEN NPO SINE 1245, CLEARS BEFORE THAT. NO S/S BLEEDING
--- NOTE | 2020-04-29 16:15 | NUR ---
04/29/20 1615 NATE RIDDLE History, Chart, Medications and Allergies reviewed before start of procedure. 3-LEAD EKG REVIEWED WITH PHYSICIAN PRIOR TO START OF PROCEDURE. MONITOR INTACT WITH CONTINUOUS PULSE OXIMETRY AND INTERMITTENT BP. O2 VIA POM INTACT THROUGHOUT SEDATION/PROCEDURE. MAC WITH DR. CRYSTAL.
--- NOTE | 2020-04-29 16:45 | NUR ---
GASTROSCOPY AT BEDSIDE WITH ANESTHESIA. PT TOLERATED WELL, AWAKE NOW, ABLE TO ANSWER QUESTIONS. VSS. COLOR PALE, SKIN W/D. LUNGS CLEAR, ROOM AIR SATURATIONS STABLE. NO S/S BLEEDING. DR. BISHOP CALLED DR. MORGAN WITH UPDATE. PROTONIX D/C PER ORDERS. OK FOR CLEAR LIQUIDS. DAUGHTER AT BEDSIDE.
--- NOTE | 2020-04-29 17:57 | NUR ---
VSS. TAKING CLEAR LIQUIDS. DENIES ANY PAIN OR N/V. NO S/S BLEEDING. UPDATE TO DR. MORGAN, WILL PLAN TO TRANSFER TO [facility]. PT'S DAUGHTER UPDATED. SINUS HARISH
--- NOTE | 2020-04-29 19:00 | NUR ---
ASSUMED CARE ASSUMED CARE OF PATIENT. AWAKE AND ALERT. ORIENTED AND COOPERATIVE. REPOSITIONS SELF IN BED. DENIES C/O PAIN OR DISCOMFORT AT THIS TIME. DENIES NAUSEA. MONITOR SHOWS NSR, RATE 60s. BP STABLE. RA SATS STABLE. RESPIRATIONS EVEN AND UNLABORED. VOIDING WITHOUT DIFFICULTY. NS INFUSING AT 100CC/HR AND SANDOSTATIN AT 25CC/HR (50MCG/HR) PER ORDER. SEE SHIFT ASSESSMENT FOR FULL ASSESSMENT.
[2020-04-30 03:54] LABS: BASOPHILS ABSOLUTE AUTO 0.02 K/mm3 (0.00-0.23); BASOPHILS PERCENT AUTO 1 % (0-2); EOSINOPHILS ABSOLUTE AUTO 0.06 K/mm3 (0.00-0.68); EOSINOPHILS PERCENT AUTO 3 % (0-6); Hematocrit 22.6 % (37.0-53.0); Hemoglobin 7.9 g/dL (13.5-17.5); IMMATURE GRAN ABSOLUTE AUTO 0.02 K/mm3 (0.00-0.10); IMMATURE GRAN PERCENT AUTO 1 % (0-1); LYMPHOCYTES ABSOLUTE AUTO 0.53 K/mm3 (0.84-5.20); LYMPHOCYTES PERCENT AUTO 25 % (21-46); MONOCYTES ABSOLUTE AUTO 0.28 K/mm3 (0.16-1.47); MONOCYTES PERCENT AUTO 13 % (4-13); Mean Corpuscular HGB 30.7 pg (26.0-34.0); Mean Corpuscular Volume 88 fL (80-100); Mean Platelet Volume 10.6 fL (9.1-12.4); NEUTROPHILS ABSOLUTE AUTO 1.22 K/mm3 (1.96-9.15); NEUTROPHILS PERCENT AUTO 57 % (41-73); Platelet Count 79 K/mm3 (150-400); RDW Coefficient Variation 15.5 % (11.7-14.2); RDW Standard Deviation 48.8 fL (35.1-46.3); Red Blood Cell Count 2.57 M/mm3 (4.30-5.90); White Blood Cell Count 2.13 K/mm3 (4.00-11.30)
[2020-04-30 04:14] LABS: Anion Gap 5 mmol/L (6-16); Blood Urea Nitrogen 10 mg/dL (8-24); Bun/Creatinine Ratio 14.7 (12.0-20.0); CO2, Blood 25 mmol/L (21-32); Calcium, Blood 8.4 mg/dL (8.5-10.1); Chloride, Blood 114 mmol/L (98-108); Creatinine, Blood 0.68 mg/dL (0.60-1.20); Glomerular Filtration Rate >60 (60-); Glucose, Blood 132 mg/dL (70-99); Potassium, Blood 4.1 mmol/L (3.5-5.5); Sodium, Blood 144 mmol/L (136-145)
--- NOTE | 2020-04-30 06:17 | NUR ---
SHIFT SUMMARY NO ACUTE CHANGES DURING NOC. SLEPT WHEN UNDISTURBED. VSS. HR MID-50s-60s. REMAINS ON RA- SATS STABLE. TOLERATING CLEAR LIQUID DIET. DENIES NAUSEA, PAIN OR OTHER DISCOMFORT. VOIDING WITHOUT DIFFICULTY. NS AND SANDOSTATIN INFUSING PER ORDER. HgB 7.9 THIS AM. NO EVIDENCE OF BLEEDING. WILL REPORT TO ONCOMING RN WHEN AVAILABLE.
--- NOTE | 2020-04-30 08:30 | NUR ---
ASSUMED CARE REPORT RECEIVED FROM MEG CAVAZOS. PT RESTING IN BED, AWAKE AND WATCHING TV. PT ASKS IF HE CAN HAVE A REGULAR DIET, WILL ASK PHYSICIAN DURING ROUNDS. PT AWARE OF POSSIBLE TRANSFER TO [facility] TODAY. HIS DAUGHTER IS COMING IN TO HAVE HIM SIGN PAPERS SO SHE CAN TAKE CARE OF HIS BILLS IF HE GOES TO [place]. REQUESTED THAT SHE ALSO BRING IN HIS MESALAMINE AND ENZYMES THAT OUR PHARMACY DOESN'T CARRY SO PT WON'T MISS MORE DOSES IN CASE HE DOESN'T GO TO [place]. NO OTHER REQUESTS FROM PT AT THIS TIME. CONTINUING TO MONITOR.
[2020-04-30 09:57] LABS: International Normalized Ratio 1.15; Prothrombin Time Results 12.2 Sec (9.7-11.5)
--- NOTE | 2020-04-30 10:23 | NUR ---
DR. MORGAN REPORTED BACK THAT THE [facility] PT WILL TRANSFER IS SATURDAY. SPOKE TO DR. CASTRO AND PROVIDED HIM WITH UPDATE. RECEIVED OK TO ADVANCE DIET TO FULL LIQUID AND TO RECHECK H/H AT 1500, ORDERS PLACED. PT UPDATED BY DR. MORGAN AND NURSING STAFF.
--- NOTE | 2020-04-30 12:18 | NUR ---
REASSESSMENT PT HAS BEEN RESTING IN BED THROUGHOUT THE MORNING. DIDN'T WANT TO GET UP TO A CHAIR FOR BREAKFAST BECAUSE HE WAS COMFORTABLE AND HE ALSO TOOK A NAP AFTER BREAKFAST. HE REMAINS ALERT AND ORIENTED. LUNGS ARE CLEAR, RA. SR TO SB IN THE 50S, SBP IN THE LOW 100S. NO SIGNS OF BLEEDING FROM GI TRACT. NO OTHER CONCERNS AT THIS TIME. CONTINUING TO MONITOR.
[2020-04-30 15:19] LABS: Hematocrit 23.7 % (37.0-53.0); Hemoglobin 8.2 g/dL (13.5-17.5)
--- NOTE | 2020-04-30 17:54 | NUR ---
SHIFT SUMMARY PT SPENT THE DAY RESTING IN BED. HE HAS NOT HAD ANY FURTHER SIGNS OF BLEEDING. HAD A DARK BROWN BM THIS AFTERNOON. H/H STABLE. SB WITH RATE IN THE 50S, BUT PT DENIES DIZZINESS. LUNGS CLEAR, RA. VOIDING IN URINAL. PT'S EDGARD CAME TO VISIT AND WAS UPDATED. AWAITING POSSIBLE PROCEDURE WITH DR. TALBOT OR TRANSFER TO [place] ON SATURDAY.
[2020-05-01 04:16] LABS: Hematocrit 22.2 % (37.0-53.0); Hemoglobin 7.6 g/dL (13.5-17.5); Mean Corpuscular HGB 30.6 pg (26.0-34.0); Mean Corpuscular HGB Conc 34.2 g/dL (31.5-36.5); Mean Corpuscular Volume 90 fL (80-100); Mean Platelet Volume 10.5 fL (9.1-12.4); Platelet Count 80 K/mm3 (150-400); RDW Coefficient Variation 15.4 % (11.7-14.2); RDW Standard Deviation 48.7 fL (35.1-46.3); Red Blood Cell Count 2.48 M/mm3 (4.30-5.90); White Blood Cell Count 2.34 K/mm3 (4.00-11.30)
[2020-05-01 04:41] LABS: Alanine Aminotransfer (ALT/SGP 43 U/L (12-78); Albumin, Blood 2.4 g/dL (3.4-5.0); Alk Phos 44 U/L (50-136); Anion Gap 3 mmol/L (6-16); Aspartate Aminotrans (AST/SGOT 18 U/L (12-37); Blood Urea Nitrogen 11 mg/dL (8-24); Bun/Creatinine Ratio 16.5 (12.0-20.0); CO2, Blood 27 mmol/L (21-32); Calcium, Blood 8.3 mg/dL (8.5-10.1); Chloride, Blood 113 mmol/L (98-108); Creatinine, Blood 0.67 mg/dL (0.60-1.20); Globulin, Blood 2.3 g/dL (2.2-4.0); Glomerular Filtration Rate >60 (60-); Glucose, Blood 143 mg/dL (70-99); Sodium, Blood 143 mmol/L (136-145); Total Protein, Blood 4.7 g/dL (6.4-8.2)
--- NOTE | 2020-05-01 06:00 | NUR ---
SHIFT SUMMARY PT RESTED WELL THROUGH THE NIGHT. ABLE TO MAKE NEEDS KNOWN. SATS >90% ON ROOM AIR. HR BRADYCARDIA - LOW HIGH 30'S - ASYMPTOMATIC. PT HR 40-50'S NOW. VOIDING TO URINAL, NO BM. HGB DROPPED FROM 8.2 TO 7.6. VSS - BP HYPOTENSIVE. NO C/O PAIN. CALL LIGHT WITHIN REACH, BED IN LOWEST POSITION. WILL CONTINUE TO MONITOR.
--- NOTE | 2020-05-01 09:19 | NUR ---
CARE ASSUMED OF PT AT 0700. PT AWAKE AND ORIENTED X3. PT DENIES C/O PAIN/NAUSEA. PT W STABLE HYPOTENSION AT TIMES, MAP >65, ASYMPTOMATIC. PT BRADYCARDIC 40-50'S, ASYMPTOMATIC. SANDOSTATIN GTT INFUSING. PT TOLERATING FULL LIQUID DIET. DR MORGAN GIVEN UPDATE THIS AM.
--- NOTE | 2020-05-01 13:07 | NUR ---
PT HAD TISSUE REMOVED TO LEFT SIDE OF NOSE BY DERMATOLOGY, PT WAS SCHEDULED TO HAVE STITCHES REMOVED LAST SATURDAY. STITCHES REMOVED PER DR MORGAN. FIVE STITCHES REMOVED W/O DIFFICULTY. WOUND HAD HEALED SOMEWHAT OPEN W EDEGES SLIGHTLY ROLLED WOUND EDGE. 1CM WOUND BED CLOSED WITH ONE 1/4IN STERI STRIP. ALSO OF NOTE PT HAS PHLEBITIS TO LEFT FOREARM AT PREVIOUS IV SITE, AREA HARD, RED, SLIGHTLY WARM, SWOLLEN, AND TENDER. AREA CLEANED, WILL PLACED DRSG W ANTIBIOTIC CREAM AND HEAT PACK.
--- NOTE | 2020-05-01 16:11 | NUR ---
DR MORGAN AT BEDSIDE AT 1430. RIGHT FOREARM AREA W PHLEBITIS CLEANED, DRSG PLACED, WARM PACK APPLIED. BP LOW W MAP >60, PT REMAINS ASYMPTOMATIC, WAS UP TO CHAIR EARLIER AND TOLERATED WELL. NO S/S OF ACTIVE GI BLEED.
--- NOTE | 2020-05-01 16:36 | NUR ---
DR CASTRO CALLED AND GIVEN UPDATE. OKAY TO ADVANCE DIET TO REGULAR. CONTINUE SANDOSTATIN GTT PER DR CASTRO.
--- NOTE | 2020-05-01 20:00 | NUR ---
ASSUMED CARE PT ALERT AND ORIENTED. VS STABLE. O2 SATS REMAIN ABOVE 90% ON RA. BP STABLE. HR SINUS HARISH 50'S. PT DENIES ANY PAIN A THIS TIME. DENIES ANY NAUSEA. PT TOLERATED REG DIET FOR DINNER. PT ABLE TO VOID USING URINAL AT BEDSIDE. BT HYPERACTIVE. PT ABLE TO REPOSITION HIMSELF IN BED NEEDED INDEPENDENTLY. DENIES ANY NEEDS AT THIS TIME. WILL CONTINUE TO MONITOR CLOSELY.
[2020-05-02 03:27] LABS: Hematocrit 22.1 % (37.0-53.0); Hemoglobin 7.5 g/dL (13.5-17.5); Mean Corpuscular HGB 30.2 pg (26.0-34.0); Mean Corpuscular HGB Conc 33.9 g/dL (31.5-36.5); Mean Corpuscular Volume 89 fL (80-100); Mean Platelet Volume 10.7 fL (9.1-12.4); Platelet Count 83 K/mm3 (150-400); RDW Coefficient Variation 15.2 % (11.7-14.2); Red Blood Cell Count 2.48 M/mm3 (4.30-5.90); White Blood Cell Count 2.66 K/mm3 (4.00-11.30)
[2020-05-02 03:45] LABS: Alanine Aminotransfer (ALT/SGP 43 U/L (12-78); Albumin, Blood 2.4 g/dL (3.4-5.0); Alk Phos 50 U/L (50-136); Anion Gap 5 mmol/L (6-16); Aspartate Aminotrans (AST/SGOT 18 U/L (12-37); Bilirubin, Total 0.8 mg/dL (0.1-1.0); Blood Urea Nitrogen 16 mg/dL (8-24); Bun/Creatinine Ratio 20.4 (12.0-20.0); CO2, Blood 26 mmol/L (21-32); Calcium, Blood 8.1 mg/dL (8.5-10.1); Chloride, Blood 111 mmol/L (98-108); Creatinine, Blood 0.78 mg/dL (0.60-1.20); Globulin, Blood 2.3 g/dL (2.2-4.0); Glomerular Filtration Rate >60 (60-); Glucose, Blood 184 mg/dL (70-99); Sodium, Blood 142 mmol/L (136-145); Total Protein, Blood 4.7 g/dL (6.4-8.2)
--- NOTE | 2020-05-02 05:19 | NUR ---
SHIFT SUMMARY PT ALERT AND ORIENTED. VS STABLE. HYPOTENSIVE AT TIMES, BUT ASYMPTOMATIC. O2 SATS REMAIN ABOVE 90% ON RA. PT DENIES ANY PAIN OR NAUSEA. PT USING URINAL TO VOID. PT ABLE TO REPOSITION HIMSELF INDEPENDENTLY IN THE BED. NS AND SANDOSTATIN INFUSING PER ORDERS. WILL CONTINUE TO MONITOR AND REPORT TO ONCOMING RN. CALL LIGHT IN REACH.
--- NOTE | 2020-05-02 19:00 | NUR ---
SUMMARY NO ACUTE CHANGES NOTED THROUGH THE DAY. PT IS A&O X4, ON RA, HYPOTENSION/BRADYCARDIA NOTED THROUGH THE DAY, PT IS ASYMPTOMATIC, HOSP NOTIFIED, NS @100 ML/HR, TOLERATING PO INTAKE, DENIES PAIN, NO BLEEDING/STOOL NOTED, VOIDING WNL. IN TO COSULT WITH PT THIS EVENING. PT WILL BE NPO AFTER BREAKFAST FOR PENDING PROCEDURE. FAMILY AT THE BEDSIDE DURING CONSULT. REPORT GIVEN TO NOC RN, CALL LIGHT IN REACH.
--- NOTE | 2020-05-02 19:20 | NUR ---
ASSUMED CARE OF PT, REPORT RECEIVED. PT IS RESTING QUIETLY RECLINING IN BED AND WATCHING TV, DENIES NEEDS AT THIS TIME. DENIES DIZZINESS/VERTIGO, DENIES CP/PRESSURE, DENIES SOB/DYSPNEA, DENIES NUMBNESS/TINGLING, DENIES PAIN, DENIES NAUSEA.
--- NOTE | 2020-05-03 04:43 | NUR ---
PT RATE BRIEFLY DECREASED TO HIGH 30S, PT RESTING QUIETLY RECLINING IN BED, DENIES SYMPTOMS. WILL MONITOR.
--- NOTE | 2020-05-03 05:23 | NUR ---
PT RESTS QUIETLY THROUGHOUT SHIFT, DENIES CP/PRESSURE THROUGHOUT NOC, DENIES SOB/DYSPNEA, DENIES PAIN, DENIES NAUSEA, DENIES DIZZINESS/VERTIGO. HE HAS BEEN UP TO TOILET IN ROOM X 2 FOR LARGE AND EXTRA LARGE FORMED LIGHT BROWN BMS. HEART RATE HAS BEEN NOTED SINUS HARISH THROUGHOUT NOC WHEN AT REST RATE 40-50S, DOES INCREASE TO LOW 60S WITH UP TO TOILET AND DID DECREASE TO 37 X 1 FOR LESS THAN 6 SECONDS. OTHERWISE NO ACUTE CHANGES THIS SHIFT.
--- NOTE | 2020-05-03 08:30 | NUR ---
IN TO SEE PT. HE IS ENJOYING BREAKFAST,DENIES ANY CHEST PAIN OR SOB. DOES STATE LUQ PAIN/TENDERNESS. PT WITH IV FLUIDS @ 100ML/HR, OCTREOTRIDE @ 50ML/HR INDEPENDENT IN BED/ROOM NEEDS PARTIAL ASSIST WITH CORDS/LINES. HAS PERSONAL PHONE WITH HIM, RECEIVING CALLS. LUNGS CLEAR, HR SLOW, 50'S MOSTLY DOWN TO 40S WITH RESTING. PULSES GOOD, ACTIVE BT, USES URINAL. USE OF CALL LIGHT APPROPRIATE. AWAIT TO HEAR WHEN PROCEDURE WILL BE.
[2020-05-03 09:03] LABS: BASOPHILS ABSOLUTE AUTO 0.01 K/mm3 (0.00-0.23); BASOPHILS PERCENT AUTO 1 % (0-2); EOSINOPHILS ABSOLUTE AUTO 0.05 K/mm3 (0.00-0.68); EOSINOPHILS PERCENT AUTO 3 % (0-6); Hematocrit 24.2 % (37.0-53.0); IMMATURE GRAN PERCENT AUTO 0 % (0-1); LYMPHOCYTES ABSOLUTE AUTO 0.33 K/mm3 (0.84-5.20); LYMPHOCYTES PERCENT AUTO 18 % (21-46); MONOCYTES PERCENT AUTO 11 % (4-13); Mean Corpuscular HGB 30.3 pg (26.0-34.0); Mean Corpuscular HGB Conc 33.1 g/dL (31.5-36.5); Mean Corpuscular Volume 92 fL (80-100); Mean Platelet Volume 10.5 fL (9.1-12.4); NEUTROPHILS ABSOLUTE AUTO 1.26 K/mm3 (1.96-9.15); NEUTROPHILS PERCENT AUTO 68 % (41-73); Platelet Count 80 K/mm3 (150-400); RDW Coefficient Variation 15.2 % (11.7-14.2); Red Blood Cell Count 2.64 M/mm3 (4.30-5.90); White Blood Cell Count 1.85 K/mm3 (4.00-11.30)
--- NOTE | 2020-05-03 12:38 | NUR ---
HERE TO SIGN INFORMED CONSENT WITH PATIENT.PT ASKING QUESTIONS, DR LEUNG.
--- NOTE | 2020-05-03 14:06 | NUR ---
Met pt.in bed reading he reports to be doing much better encouraged pt. and prayed for him.
--- NOTE | 2020-05-03 16:02 | NUR ---
PT CONTINUES WAITING FOR HIS TURN IN INTERVENTIONAL RADIOLOGY. PT IS WONDERING WHAT IS TAKING SO LONG, ENCOURAGED THAT HE MUST NOT BE "SERIOUS" SOME OTHER PATIENTS. TRYING TO ENCOURAGE. HE DOES CONTINUE TO RUN IN THE 40'S WHILE HERE "HANGING OUT" AND WAITING. HE DENIES ANY COMPLAINTS, NO CHEST PAIN, SOB, DIZZINESS ETC WHILE EXPERIENCING THE LOW HEART RATE.
--- NOTE | 2020-05-03 16:53 | NUR ---
PT TO INTERVENTIONAL RADIOLOGY WITH MEG ROMERO. DAUGHTER ALONG SIDE TO HEART CENTRE WAITING ROOM.
--- NOTE | 2020-05-03 19:35 | NUR ---
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
--- NOTE | 2020-05-03 21:00 | NUR ---
UPDATE TO SEE PT; AFTER APPROXIMATELY 15 MINUTES DAUGHTER WAS AT BEDSIDE FOR UPDATE SHE STATES SHE WAS WAITING AT [employer] ARE[employer] FOR REPORT; PT A&O BUT STATES HE DOES NOT "REMEMBER EVERYTHING" TOLD HIM
--- NOTE | 2020-05-03 22:30 | NUR ---
UPDATE SPOKE TO CONOR GOMEZ WHEN SHE WAS IN UNIT TO DISCUSS PT C/O PAIN IN OP SITE; STATES WHEN HE BREATHES IN AND OUT HE HAS PAIN; NEW ORDER GIVEN FOR TYLENOL AND LIDOCAINE PATCH; PT STATES HE WILL TRY TYLENOL FIRST; REFER TO EMAR; PT DENIES OTHER NEEDS; CALL LIGHT IN REACH
[2020-05-04 03:41] LABS: BASOPHILS ABSOLUTE AUTO 0.01 K/mm3 (0.00-0.23); BASOPHILS PERCENT AUTO 0 % (0-2); EOSINOPHILS ABSOLUTE AUTO 0.02 K/mm3 (0.00-0.68); EOSINOPHILS PERCENT AUTO 1 % (0-6); Hematocrit 19.6 % (37.0-53.0); Hemoglobin 6.5 g/dL (13.5-17.5); IMMATURE GRAN ABSOLUTE AUTO 0.01 K/mm3 (0.00-0.10); IMMATURE GRAN PERCENT AUTO 0 % (0-1); LYMPHOCYTES ABSOLUTE AUTO 0.42 K/mm3 (0.84-5.20); LYMPHOCYTES PERCENT AUTO 16 % (21-46); MONOCYTES ABSOLUTE AUTO 0.28 K/mm3 (0.16-1.47); MONOCYTES PERCENT AUTO 11 % (4-13); Mean Corpuscular HGB 30.1 pg (26.0-34.0); Mean Corpuscular HGB Conc 33.2 g/dL (31.5-36.5); Mean Corpuscular Volume 91 fL (80-100); Mean Platelet Volume 10.5 fL (9.1-12.4); NEUTROPHILS ABSOLUTE AUTO 1.93 K/mm3 (1.96-9.15); NEUTROPHILS PERCENT AUTO 72 % (41-73); Platelet Count 78 K/mm3 (150-400); RDW Coefficient Variation 15.1 % (11.7-14.2); RDW Standard Deviation 49.1 fL (35.1-46.3); Red Blood Cell Count 2.16 M/mm3 (4.30-5.90); White Blood Cell Count 2.67 K/mm3 (4.00-11.30)
[2020-05-04 03:58] LABS: Alanine Aminotransfer (ALT/SGP 40 U/L (12-78); Albumin, Blood 2.3 g/dL (3.4-5.0); Albumin/Globulin Ratio 1.1 (0.8-1.8); Alk Phos 42 U/L (50-136); Anion Gap 4 mmol/L (6-16); Aspartate Aminotrans (AST/SGOT 19 U/L (12-37); Bilirubin, Total 0.7 mg/dL (0.1-1.0); Blood Urea Nitrogen 16 mg/dL (8-24); CO2, Blood 26 mmol/L (21-32); Calcium, Blood 7.7 mg/dL (8.5-10.1); Chloride, Blood 110 mmol/L (98-108); Creatinine, Blood 0.76 mg/dL (0.60-1.20); Globulin, Blood 2.1 g/dL (2.2-4.0); Glomerular Filtration Rate >60 (60-); Glucose, Blood 198 mg/dL (70-99); Sodium, Blood 140 mmol/L (136-145); Total Protein, Blood 4.4 g/dL (6.4-8.2)
--- NOTE | 2020-05-04 05:27 | NUR ---
UPDATE AM LAB DRAW RESULTS HGB 6.5; NOTIFIED AND NEW ORDER GIVEN FOR 1 UNIT PRBC
--- NOTE | 2020-05-04 06:42 | NUR ---
SHIFT SUMMARY PT A&O X 4; PLEASANT & COMPLIANT W/ CARE; VSS; NSR ON TELE; O2 SATS >93 ON RA; USES URINAL IN BED; CALLS APPROPRIATELY; C/O RUQ PAIN FROM OP SITE, STATES WORSENING PAIN W/ INHALE AND EXHALE; CALL LIGHT IN REACH; BED IN LOWEST POSITION; WILL CONTINUE TO MONITOR CLOSELY UNTIL HAND OFF TO DAY SHIFT RN.
[2020-05-04 15:14] LABS: Hematocrit 24.5 % (37.0-53.0); Hemoglobin 8.2 g/dL (13.5-17.5)
--- NOTE | 2020-05-04 19:41 | NUR ---
ASSUMED CARE PT IS ALERT AND ORIENTED. DENIES PAIN OR SOB. VITALS ARE STABLE. UP TO THE BATHROOM WITH SBA AND FWW. WILL CONTINUE TO MONITOR PT.
--- NOTE | 2020-05-05 00:20 | NUR ---
PT'S O2 SATS OF 90% OR LESS. SUGGESTED PUTTING OXYGEN ON AND PT REFUSED OXYGEN.
[2020-05-05 03:42] LABS: BASOPHILS ABSOLUTE AUTO 0.02 K/mm3 (0.00-0.23); BASOPHILS PERCENT AUTO 1 % (0-2); EOSINOPHILS ABSOLUTE AUTO 0.05 K/mm3 (0.00-0.68); EOSINOPHILS PERCENT AUTO 2 % (0-6); Hematocrit 21.5 % (37.0-53.0); Hemoglobin 7.3 g/dL (13.5-17.5); IMMATURE GRAN ABSOLUTE AUTO 0.01 K/mm3 (0.00-0.10); IMMATURE GRAN PERCENT AUTO 1 % (0-1); LYMPHOCYTES PERCENT AUTO 24 % (21-46); MONOCYTES ABSOLUTE AUTO 0.31 K/mm3 (0.16-1.47); MONOCYTES PERCENT AUTO 15 % (4-13); Mean Corpuscular HGB 30.2 pg (26.0-34.0); Mean Corpuscular Volume 89 fL (80-100); Mean Platelet Volume 10.3 fL (9.1-12.4); NEUTROPHILS ABSOLUTE AUTO 1.23 K/mm3 (1.96-9.15); NEUTROPHILS PERCENT AUTO 58 % (41-73); Platelet Count 82 K/mm3 (150-400); RDW Coefficient Variation 15.1 % (11.7-14.2); RDW Standard Deviation 48.2 fL (35.1-46.3); Red Blood Cell Count 2.42 M/mm3 (4.30-5.90); White Blood Cell Count 2.12 K/mm3 (4.00-11.30)
[2020-05-05 04:01] LABS: Alanine Aminotransfer (ALT/SGP 42 U/L (12-78); Albumin, Blood 2.4 g/dL (3.4-5.0); Alk Phos 47 U/L (50-136); Anion Gap 4 mmol/L (6-16); Aspartate Aminotrans (AST/SGOT 20 U/L (12-37); Blood Urea Nitrogen 16 mg/dL (8-24); Bun/Creatinine Ratio 19.4 (12.0-20.0); CO2, Blood 26 mmol/L (21-32); Chloride, Blood 114 mmol/L (98-108); Creatinine, Blood 0.82 mg/dL (0.60-1.20); Globulin, Blood 2.3 g/dL (2.2-4.0); Glomerular Filtration Rate >60 (60-); Glucose, Blood 157 mg/dL (70-99); Potassium, Blood 3.4 mmol/L (3.5-5.5); Sodium, Blood 144 mmol/L (136-145); Total Protein, Blood 4.7 g/dL (6.4-8.2)
--- NOTE | 2020-05-05 05:53 | NUR ---
SHIFT SUMMARY PT IS A/O. VITALS SIGNS ARE STABLE. PT'S SATS WERE BELOW 92% AND WAS OFFERED 0XYGEN; PT REFUSED. PT WORE BILAT SCD FOR A COUPLE HOURS DURING THE NIGHT AND REFUSED TO CONTINUE WEARING. PT HAS BEEN UP TO WALK IN ROOM AND TO THE BATHROOM WITH FWW. FLUIDS ARE INFUSING PER ORDER.
[2020-05-05 13:00] LABS: Hematocrit 25.7 % (37.0-53.0); Hemoglobin 8.6 g/dL (13.5-17.5)
[2020-05-05] MEDS ORDERED: PANT40 PO (14:25)
--- NOTE | 2020-05-05 15:19 | NUR ---
Pt was taken out in wheelchair by PCT for discharge.
== END 2020-05-05 15:20 | disposition home or self-care (01) | DRG 270 ==
LOC: ER 15:14 → ICUW 15:15 → PCU 15:15 → ER 20:14 → PCU 20:14 → ICUW 23:00 → PCU 04-27 13:31 → ICUW 04-27 13:31 → PCU 05-03 18:25
PROVIDERS: Emergency Medicine; Internal Medicine; Internal Medicine Gastroenterology; Nurse Practitioner Acute Care; Student in an Organized Health Care Education/Training Program; ADMIT Internal Medicine
PROC: 30233N1 Transfusion of Nonautologous Red Blood Cells into Peripheral Vein, Percutaneous Approach (ICD-10-PCS; 2020-04-27)
PROC: 0DJ08ZZ Inspection of Upper Intestinal Tract, Via Natural or Artificial Opening Endoscopic (ICD-10-PCS; 2020-04-29)
PROC: 06L23DZ Occlusion of Gastric Vein with Intraluminal Device, Percutaneous Approach (ICD-10-PCS; principal; 2020-05-03)
PROC: 067 Lower Veins, Dilation (ICD-10-PCS; 2020-05-03)
PROC: B51T1ZZ Fluoroscopy of Portal and Splanchnic Veins using Low Osmolar Contrast (ICD-10-PCS; 2020-05-03)
DX: I86.4 Gastric varices (principal); I21.4 Non-ST elevation (NSTEMI) myocardial infarction; I82.890 Acute embolism and thrombosis of other specified veins; D62 Acute posthemorrhagic anemia; E87.2 Acidosis; K86.1 Other chronic pancreatitis; K92.1 Melena; D61.818 Other pancytopenia; I86.8 Varicose veins of other specified sites; Z20.822 Contact with and (suspected) exposure to COVID-19; E86.0 Dehydration; J44.9 Chronic obstructive pulmonary disease, unspecified; E11.65 Type 2 diabetes mellitus with hyperglycemia; I25.10 Atherosclerotic heart disease of native coronary artery without angina pectoris; E78.5 Hyperlipidemia, unspecified; I25.2 Old myocardial infarction; Z87.891 Personal history of nicotine dependence; Z95.5 Presence of coronary angioplasty implant and graft; Z90.49 Acquired absence of other specified parts of digestive tract; Z98.890 Other specified postprocedural states; Z79.02 Long term (current) use of antithrombotics/antiplatelets; Z79.84 Long term (current) use of oral hypoglycemic drugs; Z79.82 Long term (current) use of aspirin; Z79.899 Other long term (current) drug therapy
CPT/HCPCS: 0241U; 36011; 36012; 36415; 36430; 36481; 37241; 37248; 71046; 74176; 75887; 76937; 80048; 80053; 80076; 81003; 82272; 82550; 82728; 82947; 83010; 83540; 83550; 83605; 83615; 83690; 83735; 83880; 84145; 84484; 85014; 85018; 85025; 85027; 85045; 85379; 85610; 86850; 86900; 86901; 86923; 93005; 93010; 93306; 96360; 96361; 99152; 99153; 99285-25; A9270; C1725; C1769; C1887; C1894; C9113; G0378; J0171; J1430; J1644; J2250; J2354; J2704; J3010; J3480; J7030; J7040; J7050; J7120; P9016; Q9967

== ENCOUNTER 2022-06-07 11:12 | Day surgery (SDC) | payer OTHER ==
[~2022-06-07] VITALS: Ht 177.8 cm; Wt 60.5 kg
[~2022-06-07 11:12] MED LIST changes: +PANT40 PO
[2022-06-07] MEDS ORDERED: PLAVIX75 MG (11:40)
[2022-06-07 13:32] VITALS: BP 99/64
== END 2022-06-07 13:30 | disposition home or self-care (01) ==
LOC: ORSCSDS 11:12
PROVIDERS: Student in an Organized Health Care Education/Training Program
PROC: 0DB98ZX Excision of Duodenum, Via Natural or Artificial Opening Endoscopic, Diagnostic (ICD-10-PCS; principal; 2022-06-07 12:30)
PROC: 0DB48ZX Excision of Esophagogastric Junction, Via Natural or Artificial Opening Endoscopic, Diagnostic (ICD-10-PCS; principal; 2022-06-07 12:30)
PROC: 0DB68ZX Excision of Stomach, Via Natural or Artificial Opening Endoscopic, Diagnostic (ICD-10-PCS; principal; 2022-06-07 12:30)
DX: R13.10 Dysphagia, unspecified (principal); I85.00 Esophageal varices without bleeding; K29.80 Duodenitis without bleeding; K29.70 Gastritis, unspecified, without bleeding; I25.10 Atherosclerotic heart disease of native coronary artery without angina pectoris; E11.9 Type 2 diabetes mellitus without complications; E78.00 Pure hypercholesterolemia, unspecified; I25.2 Old myocardial infarction; K22.2 Esophageal obstruction; K44.9 Diaphragmatic hernia without obstruction or gangrene; Z87.891 Personal history of nicotine dependence; Z79.02 Long term (current) use of antithrombotics/antiplatelets; Z79.899 Other long term (current) drug therapy
CPT/HCPCS: 82947; 88305; 88342; J2704; J7120

== ENCOUNTER 2023-02-08 06:20 | Emergency (ER) | payer OTHER ==
[~2023-02-08] VITALS: Ht 177.8 cm; Wt 59.9 kg
[~2023-02-08 06:20] MED LIST changes: +PLAVIX75 MG
[2023-02-08 06:51] LABS: BASOPHILS ABSOLUTE AUTO 0.05 K/mm3 (0.00-0.23); BASOPHILS PERCENT AUTO 0 % (0-2); EOSINOPHILS ABSOLUTE AUTO 0.01 K/mm3 (0.00-0.68); EOSINOPHILS PERCENT AUTO 0 % (0-6); Hematocrit 40.6 % (37.0-53.0); Hemoglobin 14.5 g/dL (13.5-17.5); IMMATURE GRAN ABSOLUTE AUTO 0.33 K/mm3 (0.00-0.10); IMMATURE GRAN PERCENT AUTO 2 % (0-1); LYMPHOCYTES ABSOLUTE AUTO 0.53 K/mm3 (0.84-5.20); LYMPHOCYTES PERCENT AUTO 3 % (21-46); MONOCYTES ABSOLUTE AUTO 0.72 K/mm3 (0.16-1.47); MONOCYTES PERCENT AUTO 5 % (4-13); Mean Corpuscular HGB 30.3 pg (26.0-34.0); Mean Corpuscular HGB Conc 35.7 g/dL (31.5-36.5); Mean Corpuscular Volume 85 fL (80-100); Mean Platelet Volume 9.3 fL (9.1-12.4); NEUTROPHILS ABSOLUTE AUTO 13.88 K/mm3 (1.96-9.15); NEUTROPHILS PERCENT AUTO 90 % (41-73); Platelet Count 254 K/mm3 (150-400); RDW Coefficient Variation 14.3 % (11.7-14.2); Red Blood Cell Count 4.79 M/mm3 (4.30-5.90); White Blood Cell Count 15.52 K/mm3 (4.00-11.30)
[2023-02-08 07:11] LABS: Albumin, Blood 2.3 g/dL (3.4-5.0); Albumin/Globulin Ratio 0.5 (0.8-1.8); Bilirubin, Total 1.1 mg/dL (0.1-1.0); Bun/Creatinine Ratio 23.4 (12.0-20.0); Calcium, Blood 8.4 mg/dL (8.5-10.1); Creatinine, Blood 0.69 mg/dL (0.60-1.20); Globulin, Blood 4.4 g/dL (2.2-4.0); Potassium, Blood 3.2 mmol/L (3.5-5.5); Total Protein, Blood 6.7 g/dL (6.4-8.2)
[2023-02-08 07:15] VITALS: BP 100/65
[2023-02-08 09:36] LABS: Influenza A, PCR Negative (NEGATIVE); Influenza B, PCR Negative (NEGATIVE); Resp Syncytial Virus, PCR Negative (NEGATIVE); SARS-Cov-2 (COVID-19) PCR, MMC Negative (NEGATIVE)
[2023-02-08] MEDS ORDERED: OXYC5 PO (10:07)
== END 2023-02-08 10:33 | disposition home or self-care (01) ==
LOC: ER 06:20
PROVIDERS: Emergency Medicine
DX: J18.9 Pneumonia, unspecified organism (principal); Z20.822 Contact with and (suspected) exposure to COVID-19; Z87.891 Personal history of nicotine dependence; Z79.02 Long term (current) use of antithrombotics/antiplatelets; Z79.84 Long term (current) use of oral hypoglycemic drugs; Z79.899 Other long term (current) drug therapy
CPT/HCPCS: 0241U; 36415; 71045; 80053; 83605; 83690; 84484; 85025; 93005; 93010; 96360; 96361; 99285-25; J7030